=== PATIENT | female | born 1965 | race American Indian/Alaskan Native ===

== ENCOUNTER 2022-05-03 11:09 | Emergency (ER) | payer MEDICAID ==
[2022-05-03] MEDS ORDERED: oxyCODONE /ACETAMINOPHEN 5-325MG TAB PO ONE (14:34)
[2022-05-03] MEDS ORDERED: KETOROLAC 10 MG TAB PO ONE (14:34)
--- NOTE | 2022-05-03 14:54 | XRay Report ---
XR ankle 3+V RT INDICATION / CLINICAL INFORMATION: fall, pain and swelling. COMPARISON: None available. FINDINGS: BONES/JOINT(S): No acute fracture or subluxation. Normal bone mineralization. SOFT TISSUES: No significant abnormality. ADDITIONAL FINDINGS: None. IMPRESSION: 1. No acute findings. Signer Name: Clive Chapman MD Signed: 05/03/2022 2:50 PM Workstation Name: [id number]
--- NOTE | 2022-05-03 16:31 | Emergency Department Report ---
ED Lower Extremity HPI - General Chief Complaint: Extremity Injury, Lower Stated Complaint: ANKLE PAIN Time Seen by Provider: 05/03/22 14:33 Source: patient Mode of arrival: Ambulatory Limitations: No Limitations - History of Present Illness Initial Comments: 57-year-old black female with a past medical history of hypertension, hyperlipidemia, diabetes, and CVA presents to the emergency department for evaluation of right ankle pain. She states that she fell while attempting to climb up her stairs at home 3 days ago and has had pain and swelling to her right ankle and foot since then. She states that pain is 10 out of 10 and worse with ambulation. Complaint: ankle injury -: Sudden, days(s) (3) Injury: Ankle: Right Place: home Severity: severe Severity scale (0 -10): 10 Worsens With: weight bearing Context: fall Associated Symptoms: swelling, able to partially bear weight. denies: snap/pop sensation, numbness, tingling Treatments Prior to Arrival: cold therapy - Related Data Previous Rx's Medication Instructions Recorded Last Taken Type Naproxen [Naprosyn] 500 mg PO BID #14 tab 05/03/22 Unknown Rx Allergies Allergy/AdvReac Type Severity Reaction Status Date / Time No Known Allergies Allergy Verified 05/03/22 11:29 ED Review of Systems ROS: Stated complaint: ANKLE PAIN Other details as noted in HPI Comment: All other systems reviewed and negative Constitutional: denies: chills, fever Respiratory: denies: shortness of breath Cardiovascular: denies: chest pain, palpitations Gastrointestinal: denies: abdominal pain, nausea, vomiting Genitourinary: denies: urgency, dysuria Musculoskeletal: denies: back pain Neurological: denies: headache, weakness ED Past Medical Hx - Medications Home Medications: Home Medications Medication Instructions Recorded Confirmed Last Taken Type Naproxen [Naprosyn] 500 mg PO BID #14 tab 05/03/22 Unknown Rx ED Physical Exam - General Limitations: No Limitations General appearance: alert, in no apparent distress - Head Head exam: Present: atraumatic, normocephalic - Eye Eye exam: Present: normal appearance. Absent: conjunctival injection - Neck Neck exam: Present: normal inspection - Respiratory Respiratory exam: Absent: respiratory distress - Cardiovascular Cardiovascular Exam: Present: regular rate - GI/Abdominal GI/Abdominal exam: Absent: distended, tenderness - Expanded Lower Extremity Exam Right Lower Leg exam: Present: normal inspection Ankle exam: Present: tenderness, swelling, ecchymosis. Absent: full ROM, abr asion, laceration, deformity, crepidus, dislocation, erythema Foot/Toe exam: Present: tenderness, swelling, ecchymosis Neuro vascular tendon exam: Present: no vascular compromise. Absent: pulse deficit, abnormal cap refill, extremity cold to touch, pallor Gait: Positive: observed and limited by pain - Back Exam Back exam: Present: normal inspection - Neurological Exam Neurological exam: Present: alert, oriented X3 - Psychiatric Psychiatric exam: Present: normal affect, normal mood - Skin Skin exam: Present: warm, dry, intact, normal color ED Course Vital Signs 05/03/22 11:27 Temperature 97.6 F Pulse Rate 79 Respiratory 18 Rate Blood Pressure 146/65 [Left] O2 Sat by Pulse 97 Oximetry - Orthopedic Splinting/Casting Injury #1 Side: right Lower Extremity Injury Location: ankle Lower Extremity Immobilizer: stirrup splint (Preformed Velcro ankle stirrup with Bruno wrap), Bruno wrap Other Orthopedic Equipment: crutches ED Lower Extremity MDM - Radiology Data Radiology results: report reviewed, image reviewed Right ankle x-ray: FINDINGS: BONES/JOINT(S): No acute fracture or subluxation. Normal bone mineralization. SOFT TISSUES: No significant abnormality. ADDITIONAL FINDINGS: None. IMPRESSION: 1. No acute findings. - Medical Decision Making 57-year-old black female with a past medical history of hypertension, hyperlipidemia, diabetes, and CVA presents to the emergency department for evaluation of right ankle pain. She states that she fell while attempting to climb up her stairs at home 3 days ago and has had pain and swelling to her right ankle and foot since then. She states that pain is 10 out of 10 and worse with ambulation. Right ankle x-ray without any acute abnormalities noted. Patient placed in Velcro ankle stirrup and given crutches per my procedure note. She is advised to take medications as prescribed and follow-up with orthopedics if no improvement or worsening symptoms. Is advised to return to the emergency department as needed. She verbalizes understanding of and agreement with plan o f care. Critical care attestation.: If time is entered above; I have spent that time in minutes in the direct care of this critically ill patient, excluding procedure time. ED Disposition Clinical Impression: Pain and swelling of right ankle Disposition: 01 HOME / SELF CARE / HOMELESS Is pt being admited?: No Does the pt Need Aspirin: No Condition: Stable Instructions: RICE Therapy for Routine Care of Injuries, [id number], How to Use Cold Therapy, [id number], Musculoskeletal Pain, Joint Pain, [id number] Additional Instructions: Take medications as prescribed. Follow-up with orthopedics if no improvement or worsening symptoms. Return to the emergency department as needed. Prescriptions: Naproxen [Naprosyn] 500 mg PO BID #14 tab Referrals: JULIÁN BOO MD [Staff Physician] - 3-5 Days Forms: Work/School Release Form(ED) Time of Disposition: 16:31
[2022-05-03 18:22] VITALS: BP 142/70
== END 2022-05-03 17:35 | disposition home or self-care (01) ==
LOC: ED 11:09
DX: M25.471 Effusion, right ankle (principal); W19.XXXA Unspecified fall, initial encounter; Y93.89 Activity, other specified; Y92.89 Other specified places as the place of occurrence of the external cause; Y99.8 Other external cause status
CPT/HCPCS: 99283